=== PATIENT | female | born 2005 | race Two or more races ===

== ENCOUNTER 2023-04-23 09:02 | Outpatient (AMB) | payer OTHER, SELFPAY ==
[2023-04-23 09:28] VITALS: BP 118/62; PULSE 76; O2SAT 98; BMI 24.6
--- NOTE | 2023-04-23 09:28 | A.OFFPC_ITS ---
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 Care Intake Note: pt is here for est care Automatic Thread Winder Required: No Accompanied by: Father Allergies No Known Allergies Allergy (Verified 04/23/23 10:18) Medication List - Last Reconciled 04/23/23 by KRISTIE Zamarripa sertraline 50 mg PO DAILY Tobacco use date assessed: 04/23/23 Dental Screening Dental Screen Date: 04/23/23 Did you have a dental visit in the last 12 months?: Yes Did you have a dental problem in the last 6 months where you did not have access to dental care?: No Was dental information given to patient?: Patient has dentist HPI HPI Comments History of Present Illness Details Patient is a 17-year-old female here to establish care. She has agreed to send us medical records from her surgical product sales consultant. She has a history of anxiety. She has declined this year's influenza and COVID booster. She moved here from [place] several years ago. Patient has chief complaint of intermittent chest tightness. Patient states that she occasionally feels chest tightness and wheeze. She reports she has been to an bible reader before and they were not able to find the problem. She denies any recent visits to the hospital for asthma. She currently denies shortness of Breath, chest pain, headache, tingling, numbness, nausea, vomiting, diarrhea. She does not have an inhaler at this time, will prescribe. Patient will need methacholine challenge test and PFTs. Patient also states that she is having trouble concentrating on school. Would like to speak to in [facility] to discuss evaluation for ADHD. [facility] Medical History (Updated 04/23/23 @ 10:48 by KRISTIE Zamarripa) Asthma Surgical History No pertinent past surgical history Family History (Updated 04/23/23 @ 10:26 by KRISTIE Zamarripa) Maternal Grandmother Cervical cancer Social History Housing: House Alcohol intake: never Patient Tobacco Use Status: Never used Tobacco e-Cigarette/Vaping Use: Never Used service: No Current occupational status: student ([employer]) Cognitive needs: No Hearing needs: No Vision needs: No Questionnaire PHQ-9 Over the last 2 weeks, how often have you been bothered by any of the following problems? 1. Little interest or pleasure in doing things: several days 2. Feeling down, depressed, or hopeless: more than half the days 3. Trouble falling or staying asleep, or sleeping too much: not at all 4. Feeling tired or having little energy: more than half the days 5. Poor appetite or overeating: not at all 6. Feeling bad about yourself - or that you are a failure or have let yourself or your family down: several days 7. Trouble concentrating on things, such as reading the newspaper or watching television: more than half the days 8. Moving or speaking so slowly that other people could have noticed. Or the opposite - being so fidgety or restless that you have been moving around a lot more than usual: not at all 9. Thoughts that you would be better off or of hurting yourself in some way: not at all Total score: 8 Depression Screening Interpretation: Negative Depression Screening Done: Yes 95384 - PHQ-9 Billing: Yes Source: Developed by Drs. Len Landrum, Tahira Núñez, Capo Levine and colleagues, with an educational leann from [employer] Thrive Questionnaire Date Thrive assessed: 04/23/23 I am a: Patient What is your living situation today?: I have a steady place to live Within the past 12 months, did the food you bought not last and you didn't have the money to get more?: Never true Within the past 12 months, did you worry whether your food would run out before you got money to buy more?: Never true Do you have trouble paying for medicines?: No Do you have trouble getting transportation to medical appointments?: No Do you have trouble paying your heating and electricity bill?: No Do you have trouble taking care of your child, family member or friend?: No Do you have trouble with day-to-day activities such as bathing, preparing meals, shopping, managing finances, etc.?: No Are you currently unemployed and looking for a job?: No Are you interested in more education?: No Please select the resources that you would like help with: None AUDIT C Alcohol Use Questionnaire (AUDIT-C) 1. How often do you have a drink containing alcohol?: Never 3. How often do you have six or more drinks on one occasion?: Never Total Score: 0 Score Reviewed/Action Taken: Yes TOMÁS-7 AMB Questionnaire TOMÁS-7 Date TOMÁS - 7 assessed: 04/23/23 Feeling nervous, anxious, or on edge: 1 = Several days Not being able to stop or control worryin = More than half the days Worrying too much about different things: 2 = More than half the days Trouble relaxin = Several days Being so restless that it is hard to sit still: 0 = Not at all Becoming easily annoyed or irritable: 1 = Several days Feeling afraid as if something awful might happen: 1 = Several days Total TOMÁS-7 score (0-4 normal; 5-9 mild; 10-14 moderate; 15-21 severe): 8 Source: Developed by Drs. Len Landrum, Tahira Núñez, Capo Levine and colleagues, with an educational leann from [employer] TOMÁS-7 Assessment Billing TOMÁS-7 Assessment Tool: TOMÁS-7 Assessment 52791 Review of Systems Const Details: Constitutional : No Weight loss, No Fever, No Chills, No Fatigue, No Malaise ENT/Mouth : No sore throat, No Rhinorrhea Eyes: No Eye Pain, No Swelling, No Redness Cardiovascular : No Chest Pain, No SOB, No Dyspnea on Exertion, No Orthopnea, No Edema, No Palpitations Respiratory : No Cough, No Sputum, No Wheezing Gastrointestinal : No Nausea, No Vomiting, No Diarrhea, No Constipation, No abdominal Pain, No Hematochezia, No Melena Neuro : No Weakness, No Numbness, No Dizziness, No Headache Psych : No Anxiety/Panic, No Depression All other systems reviewed and are negative Physical exam (Primary Care) Vital Signs: Last Vital Signs Pulse 76 04/23/23 09:28 BP 118/62 04/23/23 09:28 Pulse Ox 98 04/23/23 09:28 Oxygen Delivery Method Room Air 04/23/23 09:28 Care Plan Goal for BP management: Vital signs reviewed stable BMI result Body Mass Index 24.6 Tobacco/Smoking Status: Tobacco use Status Tobacco use date assessed 04/23/23 04/23/23 09:31 Patient Tobacco Use Status Never used Tobacco 04/23/23 09:31 e-Cigarette/Vaping Use Never Used 04/23/23 09:31 PHQ-9: PHQ-9 Score PHQ-9: Total score 8 04/23/23 09:33 Depression Screening Interpretation: Negative Thrive Assessment: Date of Thrive Assessment Date Thrive assessed 04/23/23 04/23/23 09:33 Const General: cooperative and no acute distress Orientation/consciousness: patient oriented x3 Limitations: no limitations HENMT Head: Yes normal to inspection and Yes normocephalic Ears: TM's normal bilaterally General nose exam: Normal external nose present and Normal septum present Mouth: Normal oral and palatal mucosa present Teeth and gingiva: dentition normal Eyes Pupils: Equal, round and reactive pupils present EOM: EOMs intact bilaterally Direct Ophthalmoscopy: normal light reflex, no photophobia and no papilledema Neck Neck: Yes normal visual inspection, Yes full ROM and Yes no lymphadenopathy Resp Auscultation: clear to auscultation bilaterally Cardio Rate: regular rate Rhythm: regular rhythm Heart sounds: S1 normal heart sound present and S2 normal heart sound present Peripheral pulses: Peripheral pulses 2+ throughout Neuro General: patient oriented x3 Cranial nerves: Yes Equal, round and reactive pupils present Assessment and Plan Assessment & Plan (1) Reactive airway disease: Comment: Will refer patient for methacholine challenge in full PFTs. Will prescribe albuterol inhaler to be used as needed. Patient has been educated on signs of worsening symptoms and when to return to the office or when to present to the ED . patient has been educated on side effects of this medication. Code(s): J45.909 - Unspecified asthma, uncomplicated Qualifiers: Asthma severity: mild Asthma persistence: unspecified Qualified Code(s): J45.909 - Unspecified asthma, uncomplicated Plan: Take your medications as prescribed. If you were prescribed antibiotics today, it is important that you take your medication to their entirety, do not skip any doses, do not finish them early. Follow-up with your primary care provider this week. Return to the emergency department with new or worsening symptoms. Such as fevers, chills, chest pain, shortness of breath, nausea, vomiting, dizziness, headache, vision changes, lethargy In case of emergency call 911 Plan Patient will follow-up for physical exam in 3 months. Orders: Orders Comprehensive Met. Panel Today Z91.89 - Other specified personal risk factors, not elsewhere classified Complete Blood Count Auto Diff Today Z13.0 - Encounter for screening for diseases of the blood and blood-forming organs and certain disorders involving the immune mechanism UA CC w/rflx Micro + Cult Today E86.0 - Dehydration Vitamin D 25-OH (D2 and D3) Today Z13.21 - Encounter for screening for nutritional disorder Lipid Panel Today E78.5 - Hyperlipidemia, unspecified TSH reflex Free T4 Today E03.9 - Hypothyroidism, unspecified Medications: New albuterol sulfate 90 mcg/actuation 2 puffs inhalation QID PRN 6.7 grams 0RF shortness of breath or wheezing Coding Level of Care Code New Pt Level 4 (02816) Diagnoses Mild reactive airways disease, unspecified whether persistent J45.909 Asthma severity: mild Asthma persistence: unspecified Additional Codes TOMÁS-7 Assessment Billing - TOMÁS-7 Assessment Tool: TOMÁS-7 Assessment 29542 ([id number]) Time Spent (min) 30
== END 2023-04-23 10:52 | disposition home or self-care (01) ==
PROVIDERS: Visit Provider Nurse Practitioner Primary Care
DX: J45.909 Unspecified asthma, uncomplicated (principal)
CPT/HCPCS: 99204

== ENCOUNTER 2023-04-24 08:50 | Outpatient (REF) | payer OTHER, SELFPAY ==
[2023-04-24 11:47] LABS: MANUAL DIFF FLAG NO
[2023-04-24 11:48] LABS: Appearance Urine Clear; Color Urine Yellow; Glucose Urine UA Negative (Negative); Leukocyte Esterase Urine Trace (Negative); Nitrite Urine Negative (Negative); Specific Gravity - Urine >= 1.030 (1.005-1.025); UMIC TRIGGER UACC YES; Urine Blood Negative (Negative); Urine Ketones Trace mg/dL (Negative); Urine Protein Trace mg/dL (Neg-Trace)
[2023-04-24 12:04] LABS: Bacteria Urine None Seen (None Seen); Hyaline Casts Urine 0-2 /LPF (0-2); RBC Urine 0-2 /HPF (0-2); UACC Culture Trigger YES
[2023-04-24 12:08] LABS: Basophils Percent Auto 0.4 % (0-2); Eosinophils Absolute Auto 0.1 X10*3/uL (0.0-0.4); Eosinophils Percent Auto 1.9 % (0-4); Hematocrit 44.7 % (37.0-47.0); Hemoglobin 15.5 g/dl (12.0-16.0); Imm Gran Abs Auto 0.01 X10*3/uL (0.00-0.03); Imm Gran Pct Auto 0.1 % (0.0-0.4); Lymphocytes Absolute Auto 1.4 X10*3/uL (1.2-4.9); Lymphocytes Percent Auto 20.3 % (20-40); Mean Corpuscular HGB Conc 34.7 g/dl (31.0-35.0); Mean Corpuscular Hemoglobin 31.8 pg (27.0-33.0); Mean Corpuscular Volume 91.6 fL (80.0-98.0); Mean Platelet Volume 10.3 fL (9.4-12.3); Monocytes Absolute Auto 0.4 X10*3/uL (0.1-1.2); Monocytes Percent Auto 6.3 % (2-11); Platelet Count 268 X10*3/uL (160-400); Red Blood Count 4.88 X10*6/uL (4.20-5.50)
[2023-04-24 12:53] LABS: Alanine Aminotransferase 12 U/L (0-31); Albumin Level 4.6 g/dL (3.5-5.0); Alkaline Phosphatase 56 U/L (39-117); Anion Gap 11 (12-20); Aspartate Amino Transferase 12 U/L (5-31); Bilirubin Total 0.7 mg/dL (0.0-1.0); Blood Urea Nitrogen 15 mg/dL (9-16); Calcium 10.2 mg/dL (8.4-10.2); Carbon Dioxide 27 mmol/L (22-29); Chloride 107 mmol/L (96-108); Cholesterol 187 mg/dL (<200); Estimated Glomerular Filt Rate > 60; Glucose Random 94 mg/dL (60-115); HDL Cholesterol 51 mg/dL (>40); LDL Cholesterol Calculated 117 mg/dL (<100); Potassium 5.1 mmol/L (3.3-5.1); Sodium 140 mmol/L (135-145); TSH reflex Free T4 1.01 uIU/mL (0.32-4.0); Total Protein 7.4 g/dL (6.5-8.0); Triglycerides 95 mg/dL (<150)
[2023-04-29 14:58] LABS: Vitamin D 25-OH, D2 <4 ng/mL; Vitamin D 25-OH, D3 36 ng/mL; Vitamin D 25-OH, Total 36 ng/mL (30-100)
== END 2023-04-24 08:51 | disposition home or self-care (01) ==
LOC: HO.HMGCLDS 08:50
PROVIDERS: PCP Nurse Practitioner Primary Care; Visit Provider Nurse Practitioner Primary Care
DX: E03.9 Hypothyroidism, unspecified (principal); E78.5 Hyperlipidemia, unspecified; Z13.0 Encounter for screening for diseases of the blood and blood-forming organs and certain disorders involving the immune mechanism; Z13.21 Encounter for screening for nutritional disorder; Z91.89 Other specified personal risk factors, not elsewhere classified
CPT/HCPCS: 36415; 80053; 80061; 81001; 82306; 84443; 85025; 87086

== ENCOUNTER 2023-07-21 08:43 | Outpatient (AMB) | payer OTHER, SELFPAY ==
[2023-07-21 09:17] VITALS: BP 106/70; PULSE 90; O2SAT 99; BMI 25.2
--- NOTE | 2023-07-21 09:17 | A.OFFPC_ITS ---
Vital Signs 07/21/23 09:17 Height 5 ft 3 in Weight 142 lb 3 oz BMI 25.2 BP 106/70 Blood Pressure Location Rt brachial Position Sitting Pulse 90 Pulse Source Pulse Oximeter Pulse Oximetry (%) 99 Oxygen Delivery Method Room Air Intake Visit Reasons: Annual PE, TB test for school Intake Note: Pt is here today for her Annual PE, also needs TB test for school. No history of Pap Smear Is last menstrual period known: Yes Last menstrual period: 06/30/23 Allergies No Known Allergies Allergy (Verified 07/21/23 09:52) Medication List - Last Reconciled 07/21/23 by KRISTIE Zamarripa Tobacco use date assessed: 07/21/23 Dental Screening Dental Screen Date: 07/21/23 Did you have a dental visit in the last 12 months?: Yes Did you have a dental problem in the last 6 months where you did not have access to dental care?: No Was dental information given to patient?: Patient has dentist HPI HPI Comments History of Present Illness Details Patient is a 18-year-old female here for a physical exam. Patient has a past medical history of asthma, which is under control. Patient not utilizing medication for this. Patient is due for influenza vaccine, does not want immunization today, will come back to the office in 1 week. 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 Will draw varicella IgG antibody, will draw T spot, will draw hep B surface antibody test. Patient states she is no longer taking sertraline. Feels like her anxiety and depression is under control. Denies SI/HI. Patient also has history of lower back discomfort after standing in place for several hours. Patient has never had imaging for this in the past. Denies any tingling or numbness, denies trauma to the area, will order lumbar x-ray. Patient has been educated to obtain proper footwear. Patient has been educated on proper body ergonomics. Patient does not use medication. [facility] Medical History (Updated 07/21/23 @ 10:00 by KRISTIE Zamarripa) Asthma Surgical History No pertinent past surgical history Family History Maternal Grandmother Cervical cancer Social History Housing: House Alcohol intake: never Patient Tobacco Use Status: Never used Tobacco e-Cigarette/Vaping Use: Never Used service: No Current occupational status: student ([employer]) Cognitive needs: No Hearing needs: No Vision needs: No Female Reproductive History Menstrual Date of last menstrual period: 06/30/23 Questionnaire Thrive Questionnaire Date Thrive assessed: 04/23/23 AUDIT C Alcohol Use Questionnaire (AUDIT-C) 1. How often do you have a drink containing alcohol?: Never 3. How often do you have six or more drinks on one occasion?: Never Total Score: 0 Score Reviewed/Action Taken: Yes TOMÁS-7 AMB Questionnaire TOMÁS-7 Date TOMÁS - 7 assessed: 04/23/23 Source: Developed by Drs. Len Landrum, Tahira Núñez, Capo Levine and colleagues, with an educational leann from [employer]. Review of Systems Const Details: Constitutional : No Weight loss, No Fever, No Chills, No Fatigue, No Malaise ENT/Mouth : No sore throat, No Rhinorrhea Eyes: No Eye Pain, No Swelling, No Redness Cardiovascular : No Chest Pain, No SOB, No Dyspnea on Exertion, No Orthopnea, No Edema, No Palpitations Respiratory : No Cough, No Sputum, No Wheezing Gastrointestinal : No Nausea, No Vomiting, No Diarrhea, No Constipation, No abdominal Pain, No Hematochezia, No Melena Genitourinary : No Dysuria, No Urinary Frequency, No Hematuria, Musculoskeletal :Admits ocassional lower back pain. Skin : No Skin Lesions, No rash Neuro : No Weakness, No Numbness, No Dizziness, No Headache Psych : No Anxiety/Panic, No Depression Heme/Lymph: No Bruising, No Bleeding,No Lymphadenopathy Endocrine : No Polyuria, No Polydipsia All other systems reviewed and are negative Physical exam (Primary Care) Vital Signs: Last Vital Signs Pulse 90 07/21/23 09:17 BP 106/70 07/21/23 09:17 Pulse Ox 99 07/21/23 09:17 Oxygen Delivery Method Room Air 07/21/23 09:17 Care Plan Goal for BP management: Vital signs reviewed stable. BMI result Body Mass Index 25.2 Tobacco/Smoking Status: Tobacco use Status Tobacco use date assessed 07/21/23 07/21/23 09:20 Patient Tobacco Use Status Never used Tobacco 07/21/23 09:20 e-Cigarette/Vaping Use Never Used 07/21/23 09:20 Thrive Assessment: Date of Thrive Assessment Date Thrive assessed 04/23/23 07/21/23 09:20 Const Other: Appearance: Alert.? Oriented X3.? No acute distress.? Head: Normocephalic, atraumatic. Eyes: Pupils equal, round and reactive to light.? ENT: Pharynx normal.?Septum Midline, TM intact and pearly mckeon bilaterally. Neck: Normal inspection.? Neck supple.?FUL ROM. CVS: Normal heart rate and rhythm.? Pulses normal.? Respiratory: No respiratory distress.? Breath sounds normal.? Abdomen: Soft and nontender.? Skin: Skin warm and dry.? Normal skin color.? Normal skin turgor.? Extremities: No lower extremity edema.? No calf ttp. 5/5 strength to bilateral upper and lower extremities Back: No midline tenderness, no C-spine tenderness, full range of motion, no CVA tenderness bilaterally. Neuro: Oriented X 3.? No motor deficit.? No sensory deficit. CN 2-12 intact Assessment and Plan Assessment & Plan (1) Encounter for routine adult physical exam with abnormal findings: Comment: Will order of varicella IgG antibody titer. Will order T spot, will also order hep B surface antibody test. Code(s): Z00.01 - Encounter for general adult medical examination with abnormal findings (2) Lower back pain: Comment: Will order lumbar x-ray. Code(s): M54.50 - Low back pain, unspecified Qualifiers: Chronicity: chronic Back pain laterality: bilateral Sciatica presence: without sciatica Qualified Code(s): M54.50 - Low back pain, unspecified; G89.29 - Other chronic pain (3) Reactive airway disease: Comment: Patient not currently utilizing medication for this.. Patient states that her asthma feels like it is under control and she no longer needs an inhaler Code(s): J45.909 - Unspecified asthma, uncomplicated Qualifiers: Asthma severity: mild Asthma persistence: unspecified Qualified Code(s): J45.909 - Unspecified asthma, uncomplicated Plan: Take your medications as prescribed. If you were prescribed antibiotics today, it is important that you take your medication to their entirety, do not skip any doses, do not finish them early. Follow-up with your primary care provider this week. Return to the emergency department with new or worsening symptoms. Such as fevers, chills, chest pain, shortness of breath, nausea, vomiting, dizziness, headache, vision changes, lethargy In case of emergency call 911 Plan Patient will follow-up physical exam 1 year Orders: Orders T Spot TB Today Z11.1 - Encounter for screening for respiratory tuberculosis Varicella IgG Antibody Today B01.9 - Varicella without complication XR lumbar spine 2-3V Today M54.50 - Low back pain, unspecified Hepatitis B Surface Antibody Today Z11.59 - Encounter for screening for other viral diseases Coding Level of Care Code Est Pt Prev Care 18-39y(65772) Diagnoses Encounter for routine adult physical exam with abnormal findings Z00.01 Chronic bilateral low back pain without sciatica M54.50; G89.29 Chronicity: chronic Back pain laterality: bilateral Sciatica presence: without sciatica Mild reactive airways disease, unspecified whether persistent J45.909 Asthma severity: mild Asthma persistence: unspecified Time Spent (min) 25
== END 2023-07-21 09:51 | disposition home or self-care (01) ==
PROVIDERS: PCP Nurse Practitioner Primary Care; Visit Provider Nurse Practitioner Primary Care
DX: Z00.00 Encounter for general adult medical examination without abnormal findings (principal); M54.50 Low back pain, unspecified; G89.29 Other chronic pain; J45.909 Unspecified asthma, uncomplicated
CPT/HCPCS: 99395

== ENCOUNTER 2023-07-21 09:53 | Outpatient (REF) | payer OTHER, SELFPAY ==
[2023-07-22 08:33] LABS: HBS Num1 1.26 mIU/mL (0-7.99); ~Hepatitis B Surface Antibody NONREACTIVE (Nonreactive)
== END 2023-07-21 09:54 | disposition home or self-care (01) ==
LOC: HO.HMGCLDS 09:53
PROVIDERS: PCP Nurse Practitioner Primary Care; Visit Provider Nurse Practitioner Primary Care
DX: B01.9 Varicella without complication (principal); Z11.59 Encounter for screening for other viral diseases
CPT/HCPCS: 36415; 86706; 86787

== ENCOUNTER 2023-07-24 08:50 | Outpatient (AMB) | payer OTHER, SELFPAY ==
--- NOTE | 2023-07-24 09:24 | AM.OFFVISNUR ---
Intake Intake Visit Reasons: Hep B vaccine Intake Note: Pt arrived for Hep B booster, advised to have titer rechecked in 4 weeks, she agrees. Allergies No Known Allergies Allergy (Verified 07/21/23 09:52) Immunizations Engerix-B (PF) 20 mcg/mL intramuscular suspension Performing Provider: KRISTIE Zamarripa Performing Location: [facility] Administered by: Maren Lee RN on 07/24/23 09:25 Dose Route Admin Location Dispensed Lot Number Expiration Date [facility] [employer] 1 mL IM Right Deltoid 1 mL [id number] 03/13/24 41959-456-30 [employer] VIS Given Date VIS Provided VIS Publication Date 07/24/23 Single Vaccine 22 Eligibility Eligibility Date Funding Source Not [facility] Eligible 07/24/23 Private Coding Assessment & Plan Assessment & Plan Orders: Orders Hepatitis B Adult Immunization Today Z23 - Encounter for immunization Medications: New Engerix-B (PF) (hepatitis B virus vacc.rec(PF)) 1 mL IM ONCE 1 mL 0RF NS Z23 - Encounter for immunization
== END 2023-07-24 09:45 | disposition home or self-care (01) ==
PROVIDERS: PCP Nurse Practitioner Primary Care; Visit Provider Nurse Practitioner Primary Care
DX: Z23 Encounter for immunization (principal)
CPT/HCPCS: 90471; 90746

== ENCOUNTER 2023-07-24 09:13 | Outpatient (REF) | payer OTHER, SELFPAY ==
--- NOTE | ~2023-07-24 | XR_ITS ---
EXAMINATION: XR LUMBOSACRAL SPINE CLINICAL INFORMATION: Back pain. COMPARISON: MRI lumbar spine dated 03/27/2022. TECHNIQUE: AP and lateral views of the lumbar spine and lateral view of the lumbosacral junction. FINDINGS: Vertebral body heights and alignment are normal. Again, the spine shows a transitional appearance, with somewhat diminutive lowermost ribs and sacralization of the L5 vertebral body. Again, the L5-S1 disc space is narrowed. The remaining disc spaces are well-maintained. No acute fracture or spondylolisthesis is seen. The posterior elements are intact. The paravertebral soft tissues are unremarkable. XR/XR lumbar spine 2-3V IMPRESSION: There is transitional lumbar anatomy. Again, there is mild to moderate degenerative disc disease at L5-S1.
[2023-07-27 13:03] LABS: TS Negative Control Passed; TS Panel A 0; TS Panel B 0; TS Positive Control Passed; TSpotTB Negative (Negative)
== END 2023-07-24 09:14 | disposition home or self-care (01) ==
LOC: HO.HMGCX 09:13
PROVIDERS: PCP Nurse Practitioner Primary Care; Visit Provider Nurse Practitioner Primary Care
DX: M54.50 Low back pain, unspecified (principal); Z11.1 Encounter for screening for respiratory tuberculosis
CPT/HCPCS: 36415; 72100; 86481

== ENCOUNTER 2023-08-26 13:49 | Outpatient (REF) | payer OTHER, SELFPAY ==
[2023-08-27 08:16] LABS: HBS Num1 214.32 mIU/mL (0-7.99); ~Hepatitis B Surface Antibody REACTIVE (Nonreactive)
== END 2023-08-26 13:50 | disposition home or self-care (01) ==
LOC: HO.HMGCLDS 13:49
PROVIDERS: PCP Nurse Practitioner Primary Care; Visit Provider Nurse Practitioner Primary Care
DX: Z11.59 Encounter for screening for other viral diseases (principal); Z72.89 Other problems related to lifestyle
CPT/HCPCS: 36415; 86706

== ENCOUNTER 2024-03-10 10:04 | Outpatient (AMB) | payer OTHER, SELFPAY ==
--- NOTE | 2024-03-10 10:14 | MHC.OFFWIV ---
Intake Vital Signs 03/10/24 10:32 Height 5 ft 3 in Weight 141 lb BMI 25.0 BP 116/70 Blood Pressure Location Rt brachial Position Sitting Pulse 76 Pulse Source Pulse Oximeter Temp 97.9 F Temp Source Oral Pulse Oximetry (%) 99 Oxygen Delivery Method Room Air Intake Visit Reasons: EP-bilateral ear ringing, dizziness Intake Note: Patient here for bilat ear ringing that has been present for the about 1 month, she states it feels like it has air in them and she has been getting dizzy. Patient Tobacco Use Status: Never used Tobacco Allergies No Known Allergies Allergy (Verified 03/10/24 10:33) Do you need a note to return to daycare/school/sports/work: No HPI EP-bilateral ear ringing, dizziness HPI Details This note is constructed using voice recognition software. While every effort has been made to ensure accuracy, equipment or machinery cleaner errors may have been included. The patient is a 18 year old female who presents to the clinic today with bilateral ear ringing and dizziness intermittently for the past 3 months. She denies fever, chills, cough, shortness of breath, sinus congestion. She denies hitting her head, any sort of injury to the area. She has not done anything to resolve it. Symptoms last just a few minutes and then they resolve on their own. Nothing seems to make it worse. [facility] Medical History (Updated 07/21/23 @ 10:00 by KRISTIE Zamarripa) Asthma Surgical History No pertinent past surgical history Family History Maternal Grandmother Cervical cancer Social History Housing: House Alcohol intake: never Patient Tobacco Use Status: Never used Tobacco e-Cigarette/Vaping Use: Never Used service: No Current occupational status: student Cognitive needs: No Hearing needs: No Vision needs: No Review of Systems Const All systems reviewed & are unremarkable except as noted in HPI and below Physical Exam Vital Signs: Last Vital Signs Temp 97.9 F 03/10/24 10:32 Pulse 76 03/10/24 10:32 BP 116/70 03/10/24 10:32 Pulse Ox 99 03/10/24 10:32 Oxygen Delivery Method Room Air 03/10/24 10:32 BMI result Body Mass Index 25.0 Const General: cooperative, healthy appearing, comfortable and no acute distress Orientation/consciousness: patient oriented x3 Limitations: no limitations HEENT Head: Yes normal to inspection Ears: hearing grossly normal bilaterally, external ears normal and TM abnormal retracted General nose exam: Normal external nose present, No nasal discharge present and Abnormal mucous membranes and turbinates present boggy and pale Face and sinus: Yes normal facial exam and Yes sinuses nontender Mouth: Normal oral and palatal mucosa present and moist mucous membranes Throat: Yes tonsils normal, Yes uvula midline, Yes posterior oropharynx abnormal (Erythema), Yes postnasal drainage and Yes cobblestoning Eyes General: appearance normal, both eyes and all related structures Neck Neck: Yes normal visual inspection Resp Effort & Inspection: normal respiratory effort, able to speak in complete sentences, Actively coughing, no respiratory distress, not tachypneic, no tripod positioning and no use of accessory muscles Auscultation: clear to auscultation bilaterally Cardio Rate: regular rate Rhythm: regular rhythm Heart sounds: normal S1 and S2 Skin General skin exam: no rashes or lesions noted Neuro General: patient oriented x3 Extrem General: Yes normal to inspection and Yes no clubbing, cyanosis or edema Assessment & Plan Assessment & Plan (1) Allergic rhinitis: Code(s): J30.9 - Allergic rhinitis, unspecified Qualifiers: Allergic rhinitis trigger: unspecified Allergic rhinitis seasonality: unspecified Qualified Code(s): J30.9 - Allergic rhinitis, unspecified Plan: Supportive measures encouraged and reviewed. Advised patient to try a Flonase nasal spray and second-generation antihistamine such as Zyrtec, Claritin, Luna or similar. Advised consideration of sinus rinse if needed. Advised patient to follow up with primary care provider with worsening or failure to resolve. Plan See above for full details and plan. Coding Level of Care Code Est Pt Level 3 (64846) Diagnoses Allergic rhinitis, unspecified seasonality, unspecified trigger J30.9 Allergic rhinitis trigger: unspecified Allergic rhinitis seasonality: unspecified
[2024-03-10 10:32] VITALS: BP 116/70; PULSE 76; TEMP 36.6; O2SAT 99; BMI 25.0
== END 2024-03-10 11:36 | disposition home or self-care (01) ==
PROVIDERS: Visit Provider Registered Nurse
DX: J30.9 Allergic rhinitis, unspecified (principal)

== ENCOUNTER → 2024-03-10 10:04 | Outpatient (BNVA) | payer OTHER, SELFPAY | PROVIDERS: Visit Provider Registered Nurse | DX: J30.9 Allergic rhinitis, unspecified (principal) | CPT/HCPCS: 99212 ==

== ENCOUNTER 2024-07-12 08:54 | Outpatient (AMB) | payer SELFPAY ==
--- NOTE | 2024-07-12 09:04 | AM.OFFVISNUR ---
Intake Visit Reasons: tdap Allergies No Known Allergies Allergy (Verified 03/10/24 10:33) Nursing Note Pt ambulated in to the room. Administered Tdap booster to right deltoid. Immunizations Boostrix Tdap 2.5 Lf unit-8 mcg-5 Lf/0.5 mL intramuscular syringe Performing Provider: Talita Copeland MD Performing Location: [facility] [place] [facility] Administered by: Cheryl Joseph on 07/12/24 09:06 Dose Route Admin Location Dispensed Lot Number Expiration Date [facility] [employer] 0.5 mL IM Left Deltoid 0.5 mL [id number] 07/24/26 49555-213-18 [employer] VIS Given Date VIS Provided VIS Publication Date 07/12/24 Single Vaccine 20 Eligibility Eligibility Date Funding Source Not [facility] Eligible 07/12/24 Private Assessment & Plan Assessment & Plan Orders: Orders TDaP Immunization Today Z92.29 - Personal history of other drug therapy Medications: New Boostrix Tdap (diphth,pertus(acell),tetanus) 0.5 mL IM ONCE 0.5 mL 0RF NS Z92.29 - Personal history of other drug therapy Coding
== END 2024-07-12 09:49 | disposition home or self-care (01) ==
LOC: HO.HMCC 08:54
PROVIDERS: Visit Provider Internal Medicine
DX: Z92.29 Personal history of other drug therapy (principal)

== ENCOUNTER → 2024-07-12 08:54 | Outpatient (BNVA) | payer SELFPAY | PROVIDERS: Visit Provider Internal Medicine | DX: Z23 Encounter for immunization (principal) | CPT/HCPCS: 90471; 90715 ==